=== PATIENT | female | born 1960 | race Hispanic/Latino ===

== ENCOUNTER 2017-12-01 12:00 | Inpatient (IN) | payer BC ==
[2017-12-02 13:33] VITALS: BMI 24.0
[2017-12-16] MEDS ORDERED: Indocyanine Green 25 MG/10 ML VIAL ONE (06:33)
[2017-12-16] MEDS ORDERED: Bupivacaine/Epinephrine 0.25% 30 ML VIAL ONE (06:33)
[2017-12-16] MEDS ORDERED: Fentanyl 100 MCG/2 ML VIAL ONE ×2 (06:35→06:40)
[2017-12-16] MEDS ORDERED: Midazolam HCl 2 mg/2 ml Vial ONE (06:35)
[2017-12-16] MEDS ORDERED: Famotidine/PF 20 mg/2ml Vial ONE (06:41)
[2017-12-16] MEDS ORDERED: Ketorolac Tromethamine 30 MG/ML VIAL ONE ×2 (06:44→14:50)
[2017-12-16] MEDS ORDERED: cefOXitin 2 GM VIAL ONE (06:44)
[2017-12-16] MEDS ORDERED: Sodium Chloride 0.9% 100 ML ONE (06:45)
[2017-12-16] MEDS ORDERED: Dexamethasone 4 mg/ml Vial ONE (06:48)
[2017-12-16] MEDS ORDERED: Lidocaine 1% w/Epinephrine 1:100K 30 ML VIAL ONE (07:52)
[2017-12-16] MEDS ORDERED: Promethazine HCl 25 MG/ML VIAL IM PRN ×2 (10:39→11:57)
[2017-12-16] MEDS ORDERED: Promethazine HCl 25 MG/ML VIAL SLOW IVP PRN (10:39)
[2017-12-16] MEDS ORDERED: Meperidine HCl/PF 25 MG/ML VIAL SLOW IVP PRN (10:39)
[2017-12-16] MEDS ORDERED: Ondansetron HCl/PF 4 MG/2 ML Vial IVP PRN ×2 (10:39→11:57)
[2017-12-16] MEDS ORDERED: hydrALAZINE 20 MG/ML VIAL SLOW IVP PRN (11:57)
[2017-12-16] MEDS: Acetaminophen 1,000 MG in Premix Bag 1 BAG IVPB SCH ×2 (12:33→17:51)
[2017-12-16] MEDS: D5 1/2 NS w/20 mEq KCL 1,000 ML IV SCH ×2 (12:33→21:05)
[2017-12-16] MEDS: Ketorolac Tromethamine 30 MG/ML VIAL IVP SCH ×2 (12:40→17:51)
[2017-12-16] MEDS ORDERED: Bupivacaine HCl 0.5%/Epinephrine 1:200,000/PF 30 ml Vial ONE (13:39)
[2017-12-16] MEDS ORDERED: PHENYLEPHRINE-NS 100 MCG/ML 10 ML SYRINGE ONE (14:50)
[2017-12-16] MEDS ORDERED: Dexamethasone 20 MG/5 ML VIAL ONE ×2 (14:50)
[2017-12-16] MEDS ORDERED: PROPOFOL 200 MG/20 ML VIAL ONE (14:50)
[2017-12-16] MEDS ORDERED: Ondansetron HCl/PF 4 MG/2 ML Vial ONE (14:50)
[2017-12-16] MEDS ORDERED: ePHEDrine/0.9% NaCl/PF SYRINGE 50 mg/10 ml ONE (14:50)
[2017-12-16] MEDS ORDERED: Lidocaine 1% PF 5 ML VIAL ONE (14:50)
[2017-12-16] MEDS ORDERED: Glycopyrrolate 0.2 MG/ML 5 ML SYRINGE ONE (14:50)
[2017-12-16] MEDS: Enoxaparin Sodium 40 MG/0.4 ML SYRINGE SC SCH (20:45)
[2017-12-16] MEDS: Famotidine 20 MG TAB PO SCH (20:45)
[2017-12-16] MEDS ORDERED: Morphine 4 MG/ML VIAL SLOW IVP PRN (20:52)
[2017-12-16] MEDS: Morphine 2 MG/ML SYRINGE SLOW IVP PRN (20:59)
[2017-12-16] MEDS: Famotidine/PF 20 mg/2ml Vial SLOW IVP SCH (23:43)
[2017-12-17] MEDS: Acetaminophen 1,000 MG in Premix Bag 1 BAG IVPB SCH ×2 (00:02→05:25)
[2017-12-17] MEDS: Ketorolac Tromethamine 30 MG/ML VIAL IVP SCH ×5 (00:04→23:57)
[2017-12-17] MEDS: Morphine 2 MG/ML SYRINGE SLOW IVP PRN (00:06)
[2017-12-17 04:24] LABS: #Lymphocytes 0.7 thou/uL (1.20-3.40); #Monocytes 0.5 thou/uL (0.11-0.59); #Neutrophils 10.9 thou/uL (1.40-6.50); %Basophils 0.2 % (0.0-1.0); %Eosinophils 0.2 % (0.0-10.0); %Lymphocytes 5.9 % (21.0-51.0); %Monocytes 4.2 % (0.0-10.0); %Neutrophils 89.6 % (42.0-75.0); Hemoglobin 12.1 g/dL (12.0-16.0); Mean Corpuscular HGB CONC 33.5 g/dL (32.0-36.0); Mean Corpuscular Hemoglobin 34.3 pg (27.0-31.0); Mean Platelet Volume 7.7 fL (7.4-10.4); Platelet Count 203 thou/uL (130-400); RBC Distribution Width 11.5 % (11.5-14.5); Red Blood Cell (RBC) Count 3.53 mill/uL (4.20-5.40); White Blood Cell (WBC) Count 12.2 thou/uL (4.8-10.8)
[2017-12-17 04:45] LABS: Anion Gap 9 mmol/L (10-20); BUN (Urea Nitrogen) 7 mg/dL (9.8-20.1); Calc. Creatinine Clearance 79 mL/min (70-130); Calcium 8.4 mg/dL (7.8-10.44); Carbon Dioxide 23 mmol/L (22-29); Chloride 108 mmol/L (98-107); Estimated GFR-MDRD 77; Glucose 182 mg/dL (70-105); Potassium 4.1 mmol/L (3.5-5.1); Sodium 136 mmol/L (136-145)
[2017-12-17] MEDS: D5 1/2 NS w/20 mEq KCL 1,000 ML IV SCH ×2 (05:45→15:03)
[2017-12-17] MEDS: Famotidine/PF 20 mg/2ml Vial SLOW IVP SCH ×2 (08:49→21:42)
[2017-12-17] MEDS: Famotidine 20 MG TAB PO SCH ×2 (08:49→21:42)
[2017-12-17] MEDS ORDERED: Acetaminophen 325 MG TAB PO PRN (11:10)
[2017-12-17] MEDS ORDERED: HYDROcodone/Acetaminophen 7.5/325 mg Tablet PO PRN (11:11)
[2017-12-17] MEDS: HYDROcodone/Acetaminophen 7.5/325 mg Tablet PO PRN ×2 (11:59→21:42)
--- NOTE | 2017-12-17 14:14 | PRG ---
DATE OF SERVICE: 12/17/2017 SUBJECTIVE: Ms. Ramírez is postoperative day #1 following robotic right hemicolectomy. She notes gina t she had some abdominal discomfort overnight, but is feeling well currently. She is on a clear liqu id diet which she has been tolerating nicely. She has passed gas, but has not had a bowel movement. She has ambulated several times. OBJECTIVE: VITAL SIGNS: She is afebrile, pulse is 66, blood pressure 118/70. LUNGS: Clear to auscultation. ABDOMEN: Soft, nontender, nondistended with normoactive bowel sounds. EXTREMITIES: Unremarkable. LABORATORY STUDIES: CBC reveals white blood cell count 12.2, hemoglobin 12.1, platelet count is 203. Chemistry profile reveals electrolytes are essentially normal. Glucose is slightly elevated at 182 . ASSESSMENT: The patient is doing very well postoperative day #1 following robotic right hemicolectom y. I will advance up to a full liquid diet and decrease her IV fluids. If she continues to progress in this fashion, I would anticipate discharge tomorrow.
[2017-12-17] MEDS: Enoxaparin Sodium 40 MG/0.4 ML SYRINGE SC SCH (21:42)
[2017-12-18] MEDS: Ketorolac Tromethamine 30 MG/ML VIAL IVP SCH ×2 (06:14→11:25)
[2017-12-18] MEDS: HYDROcodone/Acetaminophen 7.5/325 mg Tablet PO PRN (08:26)
[2017-12-18] MEDS: Famotidine 20 MG TAB PO SCH (08:27)
[2017-12-18] MEDS: D5 1/2 NS w/20 mEq KCL 1,000 ML IV SCH (08:27)
[2017-12-18] MEDS: Famotidine/PF 20 mg/2ml Vial SLOW IVP SCH (08:27)
[2017-12-18 11:56] VITALS: BP 110/71; TEMP 98.2
--- NOTE | 2017-12-18 13:38 | OP ---
DATE OF PROCEDURE: 12/16/2017 PREOPERATIVE DIAGNOSIS: Ascending colon serrated sessile polyp. POSTOPERATIVE DIAGNOSIS: Ascending colon serrated sessile polyp. PROCEDURE PERFORMED: Robotic right hemicolectomy using the [employer] robot. SURGEON: Bro Shannon M.D. ANESTHESIA: General endotracheal. INDICATIONS: The patient is a 57-year-old female. She presents with evidence of a colonosc opically unresectable serrated polyp within the right colon. I have recommended segmental right asaf colectomy to be performed with the [employer] robot. DESCRIPTION OF OPERATION: Informed consent was obtained. The patient taken to the operating room wh ere general endotracheal anesthesia obtained with the patient in supine position. The bed was flexed appropriately, was placed in slight Trendelenburg and turned to the left. Shah catheter was placed . Abdomen was prepped with ChloraPrep and draped in sterile fashion. Local anesthetic was infiltrat ed and 8 mm left-sided periumbilical incision was created through which a Veress needle was passed in the peritoneal cavity and pneumoperitoneum established using carbon dioxide up to a pressure of 15 m mHg. An 8 mm trocar port was passed through the same incision. Laparoscopic camera was passed this port. Under direct vision, I placed 3 additional ports including a 12 mm left upper quadrant port, a 12 mm left lower quadrant port and an 8 mm suprapubic port in line with her Pfannenstiel incision. The robot was docked to these instruments and into the robotic camera and operation was continued fro m the robotic console. The omentum was reflected superiorly. Some adhesions to the right colon were lysed with electrocautery and sharp dissection. The small bowel was reflected inferiorly and to the patient's left. The patient had a very long right colon such that the cecum dropped down to the pel vis. She had a very obvious tattoo in the mid ascending colon. The cecum was grasped and retracted anteriorly and inferiorly. This clearly demonstrated the ileocolic pedicle. I carefully dissected t he inferior aspect of the pedicle and then carried a retroperitoneal dissection laterally to the righ t abdominal wall. The ileocolic vessels were then dissected and divided with the vessel sealer. Ret roperitoneal dissection was then carried superiorly, identifying the duodenum and reflected it customer assistance representative iorly. The kidney was also visualized at the right colon rested exactly on top of the right kidney. Dissection was carried through the mesentery of the transverse colon and dissected up to the proximal portion of the transverse colon. This was cleared circumferentially and divided with a single fire of the blue load of the robotic stapler. In dissecting the mesentery, the right branch of the middle colic artery was identified and divided with the vessel sealer. The vessel sealer was then utilized to dissect through the mesentery inferior to the ileocolic vessels, dissecting down to the small bow el which was fully mobilized. The distal segment of the small bowel was then divided with another fi ring of the same stapler. The final attachments of the colon were taken down by incising along the white line of Toldt using sc issors and carrying the dissection superiorly up to the hepatic flexure which was also fully mobilize d. At the point that and entire colon was mobilized, I reflected it into the upper abdomen and place d it anterior to the liver. Attention was then turned to the distal ileum and the proximal transverse colon. This rested against each other nicely. A single stay suture of 3-0 Vicryl was placed between the distal small bowel and the transverse colon about 7-8 cm from the stapled end. The stay suture was used to tent the bowel anteriorly. Enterotomies were created in both the small bowel and the colon at this point and the st apler was advanced into the two limbs of the bowel. The stapler was fired, thus creating an isoperis taltic anastomosis. The anastomosis was inspected and found to be hemostatic. The common defect was then closed with a running suture of 3-0 Stratafix in a to and fro fashion. The Vicryl stay suture was then secured as well. The area was inspected and found to be entirely viable and hemostatic. The right side of the abdomen was irrigated and all irrigant was aspirated. There was no evidence of any blood loss to speak of. The resected segment of colon was grasped and passed into the lower abdomen. The 12 mm port sites w ere closed with 0 Vicryl suture using a GraNee needle. All ports and instruments were removed. The suprapubic incision was extended to 4 cm in length and muscle splitting was used to gain access into the peritoneal cavity. The Lawson wound retractor was placed. The colon was grasped and removed une ventfully. The Lawson wound retractor was removed. The peritoneum and transversalis fascia was clos ed with a running suture of 0 PDS, and the wound was irrigated. I then closed the anterior fascia wi th another running suture of 0 PDS, and the wound was again irrigated. The remainder the wound was c losed in layers with 3-0 and 4-0 Monocryl. The other port sites were closed with 4-0 Monocryl. Derm abond was placed externally to each of the 4 incisions. There were no complications. Blood loss was negligible. The patient tolerated the procedure well and was taken to recovery room in stable condi tion.
== END 2017-12-18 12:55 | disposition home or self-care (01) | DRG 331 ==
LOC: SURG A 12-16 05:56
PROVIDERS: ADMIT Specialist; ATTEND Specialist
PROC: 0DTF4ZZ Resection of Right Large Intestine, Percutaneous Endoscopic Approach (ICD-10-PCS; principal; 2017-12-16)
PROC: 8E0W4CZ Robotic Assisted Procedure of Trunk Region, Percutaneous Endoscopic Approach (ICD-10-PCS; 2017-12-16)
DX: D12.2 Benign neoplasm of ascending colon (principal); E07.9 Disorder of thyroid, unspecified; Z79.899 Other long term (current) drug therapy
CPT/HCPCS: 36415; 36416; 80048; 85025; 88307; J0131; J0670; J0694; J1100; J1650; J1885; J2001; J2250; J2270; J2405; J2704; J3010; J7050; S0028

== ENCOUNTER 2017-12-02 12:37 | Outpatient (CLI) | payer BC ==
[2017-12-02 13:20] LABS: #Basophils 0.1 thou/uL (0.0-0.2); #Eosinphils 0.2 thou/uL (0.0-0.7); #Lymphocytes 1.8 thou/uL (1.20-3.40); #Monocytes 0.3 thou/uL (0.11-0.59); #Neutrophils 2.2 thou/uL (1.40-6.50); %Basophils 1.3 % (0.0-1.0); %Eosinophils 4.5 % (0.0-10.0); %Lymphocytes 39.2 % (21.0-51.0); %Monocytes 7.2 % (0.0-10.0); %Neutrophils 47.8 % (42.0-75.0); Hemoglobin 13.7 g/dL (12.0-16.0); Mean Corpuscular HGB CONC 34.3 g/dL (32.0-36.0); Mean Corpuscular Hemoglobin 35.1 pg (27.0-31.0); Mean Platelet Volume 7.3 fL (7.4-10.4); Platelet Count 243 thou/uL (130-400); RBC Distribution Width 11.4 % (11.5-14.5); Red Blood Cell (RBC) Count 3.89 mill/uL (4.20-5.40); White Blood Cell (WBC) Count 4.6 thou/uL (4.8-10.8)
[2017-12-02 13:44] LABS: Anion Gap 11 mmol/L (10-20); BUN (Urea Nitrogen) 10 mg/dL (9.8-20.1); Calc. Creatinine Clearance 0 mL/min (70-130); Calcium 9.6 mg/dL (7.8-10.44); Carbon Dioxide 26 mmol/L (22-29); Chloride 105 mmol/L (98-107); Estimated GFR-MDRD 77; Glucose 93 mg/dL (70-105); Potassium 4.2 mmol/L (3.5-5.1); Sodium 138 mmol/L (136-145)
== END 2017-12-02 12:38 | disposition home or self-care (01) ==
LOC: LABBT 12:37
PROVIDERS: ATTEND Specialist
DX: Z01.812 Encounter for preprocedural laboratory examination (principal); K63.5 Polyp of colon
CPT/HCPCS: 80048; 83036; 85025

== ENCOUNTER 2018-09-21 15:26 | Outpatient (CLI) | payer BC ==
--- NOTE | 2018-09-21 16:35 | BD ---
DEXA SCAN: INDICATIONS: History of osteoporosis screening. COMPARISON: Prior exam from [facility] dated 11/14/2016. LUMBAR SPINE BMD (g/cm2) T-SCORE Z-SCORE L1 0.916 -0.7 0.5 L2 0.981 -0.4 0.9 L3 0.968 -1.1 0.3 L4 0.876 -1.7 -0.3 TOTAL L1-L4 0.936 -1.0 0.3 LEFT FEMORAL NECK 0.655 -1.7 -0.5 LEFT TOTAL HIP 0.817 -1.0 -0.2 The WHO Fracture Risk Assessment tool estimates the 10 year fracture risk for a major osteoporotic fr acture for this patient at 8% and a hip fracture at 0.8%. IMPRESSION: Based on WHO criteria, the patient's bone mineral density is considered osteopenic. The patient is a t moderate risk for fracture. The bone mineral density does not appear appreciably changed from the comparison, dated 11/14/2016. POS: CET
== END 2018-09-21 15:27 | disposition home or self-care (01) ==
LOC: BICMAMMO 15:26
PROVIDERS: ATTEND Obstetrics & Gynecology
DX: Z13.820 Encounter for screening for osteoporosis (principal); M85.89 Other specified disorders of bone density and structure, multiple sites
CPT/HCPCS: 77080

== ENCOUNTER 2021-09-10 08:22 | Outpatient (CLI) | payer BC | END 2021-09-10 08:23 | disposition home or self-care (01) | LOC: BICMAMMO 08:22 | PROVIDERS: ATTEND Advanced Practice Midwife | DX: Z13.820 Encounter for screening for osteoporosis (principal); M85.89 Other specified disorders of bone density and structure, multiple sites | CPT/HCPCS: 77080 ==

== ENCOUNTER 2022-07-25 10:17 | Outpatient (CLI) | payer BC | END 2022-07-25 10:18 | disposition home or self-care (01) | LOC: BICRAD 10:17 | PROVIDERS: ATTEND Nurse Practitioner Family | DX: M25.572 Pain in left ankle and joints of left foot (principal) ==